=== PATIENT | female | born 1930 | race Caucasian/White ===

== ENCOUNTER 2021-09-07 16:04 | Inpatient (IN) | payer MEDICARE, OTHER ==
[~2021-09-07] VITALS: Ht 157.5 cm; Wt 81.7 kg
[2021-09-07 17:41] LABS: BASOPHIL 0.2 % (0-2); EOSINOPHIL 0.1 % (0-7); HGB 14.2 g/dl (12.5-16.0); LYMPHOCYTE 16.2 % (15-48); MCH 30.3 pg (25.0-31.0); MCHC 33.8 g/dL (32.0-36.0); MCV 89.6 fL (78.0-100.0); MONOCYTE 10.3 % (0-12); MPV 9.9 fL (6.0-9.5); NEUTROPHIL 72.7 % (41-80); NRBC 0; PLT 206 K/uL (150-400); RBC 4.69 M/uL (4.20-5.40); RDW 13.3 % (11.5-14.0); WBC 10.8 K/uL (4.0-10.5)
[2021-09-07 17:57] LABS: INR 1.17 (0.9-1.2); PROTHROMBIN TIME 14.3 SECONDS (11.8-13.4); PTT 21.8 SECONDS (24.4-34.7)
[2021-09-07 18:07] LABS: BILIRUBIN NEGATIVE (NEGATIVE); BLOOD 1+ Ery/uL (NEGATIVE); CLARITY CLEAR (CLEAR); COLOR YELLOW (YELLOW); GLUCOSE (U) NORMAL (NORMAL); LEUKOCYTES 2+ Leu/uL (NEGATIVE); NITRITE NEGATIVE (NEGATIVE); PROTEIN TRACE (LOW) mg/dL (NEGATIVE); SPECIFIC GRAVITY >=1.030 (1.001-1.030)
[2021-09-07 18:12] LABS: BACTERIA 3+; URINARY WBC 20-50
[2021-09-07 18:13] LABS: ALBUMIN 3.3 g/dL (3.4-5.0); ALKALINE PHOSHATASE 96 U/L (46-116); ALT 25 U/L (14-59); AST 34 U/L (15-37); BILIRUBIN - TOTAL 1.2 mg/dL (0.2-1.0); BUN 33 mg/dL (7-18); BUN/CREAT RATIO (CALC) 35.9 RATIO; CHLORIDE 100 mmol/L (98-107); CO2 (BICARBONATE) 24 mmol/L (21-32); CPK 65 U/L (26-192); CREATININE 0.92 mg/dL (0.51-0.95); GLOBULIN (CALCULATION) 3.8 g/dL; GLUCOSE 157 mg/dL (74-106); MAGNESIUM 1.8 mg/dL (1.8-2.4); POTASSIUM 4.3 mmol/L (3.5-5.1); TOTAL PROTEIN 7.1 g/dL (6.4-8.2)
[2021-09-07 18:23] LABS: LACTIC ACID 2.1 mmol/L (0.4-1.9)
[2021-09-07 18:55] LABS: INFLUENZA A NAA NEGATIVE (NEGATIVE)
[2021-09-07 19:11] LABS: CORONAVIRUS 2019 SARS-COV-2 POSITIVE (NEGATIVE)
[2021-09-08] MEDS ORDERED: ELIQUIS2.5 MG PO (06:22)
[2021-09-08] MEDS ORDERED: LIPITOR40 MG PO (06:22)
[2021-09-08] MEDS ORDERED: AMARYL2 MG PO (06:23)
[2021-09-08] MEDS ORDERED: TOPROL XL50 MG PO (06:23)
[2021-09-08] MEDS ORDERED: METFORMIN HCL500 MG PO (06:24)
[2021-09-08] MEDS ORDERED: PRINIVIL20 MG PO (06:24)
[2021-09-08] MEDS ORDERED: ALPHAGAN 020 DROPS/M OU (06:25)
[2021-09-08 07:24] LABS: BASOPHIL 0.3 % (0-2); EOSINOPHIL 0.7 % (0-7); HCT 37.3 % (37.0-47.0); HGB 12.7 g/dl (12.5-16.0); LYMPHOCYTE 24.8 % (15-48); MCH 30.6 pg (25.0-31.0); MCV 89.9 fL (78.0-100.0); MONOCYTE 12.4 % (0-12); MPV 10.1 fL (6.0-9.5); NEUTROPHIL 61.5 % (41-80); NRBC 0; PLT 195 K/uL (150-400); RBC 4.15 M/uL (4.20-5.40); RDW 13.4 % (11.5-14.0); WBC 7.3 K/uL (4.0-10.5)
[2021-09-08 07:51] LABS: BUN/CREAT RATIO (CALC) 28.2 RATIO; CREATININE 0.78 mg/dL (0.51-0.95); POTASSIUM 3.9 mmol/L (3.5-5.1)
[2021-09-08] MEDS ORDERED: CEFDINIR300 M1 PO (11:59)
--- NOTE | 2021-09-08 13:25 | NUR ---
SPOKE WITH PT. SHE IS IN AGREEMENT FOR [facility]. PT. ASKED IF SOMEONE COULD COMPLETE HER ADVANCED DIRECTIVE. ADVISED HER THAT I WOULD NOFIY THE CHAPLIAN. TC TO ED, INTERNSHIP COORDINATOR. HE WILL COME TO PT. ROOM TO COMPLETE PAPERWORK. ADVISED HER NURSEBRITNEY OF ABOVE INFORMATION.
== END 2021-09-08 13:45 | disposition home health service (06) | DRG 689 ==
LOC: FER 16:04 → FMS 22:20
PROVIDERS: Emergency Medicine; Nurse Practitioner; ADMIT Family Medicine
PROC: 8E0ZXY6 Isolation (ICD-10-PCS; principal; 2021-09-08)
DX: N39.0 Urinary tract infection, site not specified (principal); G93.41 Metabolic encephalopathy; U07.1 COVID-19; J12.82 Pneumonia due to coronavirus disease 2019; E86.0 Dehydration; R29.6 Repeated falls; E11.9 Type 2 diabetes mellitus without complications; E78.5 Hyperlipidemia, unspecified; I10 Essential (primary) hypertension; I25.10 Atherosclerotic heart disease of native coronary artery without angina pectoris; I48.91 Unspecified atrial fibrillation; G47.33 Obstructive sleep apnea (adult) (pediatric); Z98.49 Cataract extraction status, unspecified eye; Z79.01 Long term (current) use of anticoagulants; Z79.84 Long term (current) use of oral hypoglycemic drugs; Z79.899 Other long term (current) drug therapy
CPT/HCPCS: 36415; 36600; 70450; 71250; 73590; 80048; 80053; 81001; 82550; 82728; 82803; 83540; 83605; 83735; 83874; 83880; 84145; 84443; 84484; 85025; 85610; 85730; 86140; 87088; 93005; 97162; 97166; 97530-GP; 97535; G0480; J0696; J3490; J7030; U0002